=== PATIENT | female | born 1995 | race American Indian/Alaskan Native ===

== ENCOUNTER 2020-06-13 06:45 | Inpatient (IN) | payer OTHER ==
[2020-06-13] MEDS ORDERED: miSOPROStol 200 MCG TAB PR PRN (07:23)
[2020-06-13] MEDS ORDERED: OXYTOCIN 10 UNIT/1 ML INJ IM PRN (07:23)
[2020-06-13] MEDS ORDERED: LIDOCAINE (2%) 20 MG/1 ML VIAL 20 ML MDV INFILTRATI NR (07:23)
[2020-06-13] MEDS ORDERED: NALOXONE 0.4 MG/1 ML INJ IV PRN (07:23)
[2020-06-13] MEDS ORDERED: TERBUTALINE 1 MG/1 ML INJ SUB-Q PRN (07:23)
[2020-06-13] MEDS ORDERED: METHYLERGONOVINE MALEATE 0.2 MG/ML VIAL IM PRN (07:23)
[2020-06-13] MEDS ORDERED: ACETAMINOPHEN 325 MG TAB PO PRN (07:23)
[2020-06-13] MEDS ORDERED: ePHEDrine SULFATE 50 MG/1 ML INJ IV PRN ×2 (07:23→08:56)
[2020-06-13] MEDS ORDERED: AMPICILLIN/NS 2 GM/100 ML 2 GM/100 ML BAG IV NR (07:23)
[2020-06-13] MEDS ORDERED: CARBOPROST TROMETHAMINE 250 MCG/1 ML INJ IM PRN (07:23)
[2020-06-13] MEDS ORDERED: LACTATED RINGERS 1,000 ML IV SCH (07:30)
[2020-06-13 07:39] LABS: Hematocrit 34.9 % (30.3-42.9); Mean Corpuscular HGB Conc 34 % (30-34); Mean Corpuscular Volume 87 fl (79-97); Platelet Count 303 K/mm3 (140-440); Red Blood Count 4.02 M/mm3 (3.65-5.03); Red Cell Distribution Width 14.3 % (13.2-15.2)
[2020-06-13] MEDS ORDERED: ONDANSETRON 4 MG/2 ML INJ IV PRN ×2 (08:00→12:42)
[2020-06-13] MEDS ORDERED: OXYTOCIN DRIP 30 UNITS/500 ML BAG IV SCH ×2 (08:00)
[2020-06-13] MEDS ORDERED: fentaNYL 100 MCG/2 ML INJ IV PRN (08:00)
[2020-06-13] MEDS ORDERED: BUTORPHANOL 2 MG/1 ML INJ IV PRN ×2 (08:00)
--- NOTE | 2020-06-13 08:06 | History and Physical Report ---
History of Present Illness Date of examination: 06/13/20 Chief complaint: my water broke History of present illness: Pt is a 25 year old PHYLLIS 06/23/20 at 38w4d who presents with rupture of membranes at 0600 am, clear and painful contractions since this morning as well. She denies vaginal bleeding. She has had very limited care x 2 visits at [facility] since 25 wks (03/16/20 and 04/05/20), no visits in 2020 complicated by scoliosis with chiropractic referral and limited care. Her GBS status is unknown. Past History Past Medical History: other (Scoliosis ) PAYROLL ACCOUNTING CLERK History: other (HPV ) Family/Genetic History: cancer Social history: no significant social history - Obstetrical History Expected Date of Delivery: 06/23/20 Actual Gestation: 38 Week(s) 4 Day(s) : 2 Para: 1 Hx # Term Pregnancies: 1 Number of Pregnancies: 0 Spontaneous Abortions: 0 Induced : 0 Number of Living Children: 1 Medications and Allergies Allergies Allergy/AdvReac Type Severity Reaction Status Date / Time No Known Allergies Allergy Unverified 06/13/20 07:37 Active Meds: Active Medications Acetaminophen (Acetaminophen 325 Mg Tab) 650 mg PO Q4H PRN PRN Reason: Pain, Mild (1-3) Butorphanol Tartrate (Butorphanol 2 Mg/1 Ml Inj) 1 mg IV Q2H PRN PRN Reason: Pain, Moderate(4-6) LABOR PAIN Butorphanol Tartrate (Butorphanol 2 Mg/1 Ml Inj) 2 mg IV Q2H PRN PRN Reason: Pain , Severe (7-10) Carboprost Tromethamine (Carboprost Tromethamine 250 Mcg/1 Ml Inj) 250 mcg IM ONCE PRN PRN Reason: Uterine Bleeding Stop: 06/14/20 07:22 Ephedrine Sulfate (Ephedrine Sulfate 50 Mg/1 Ml Inj) 10 mg IV Q2M PRN PRN Reason: Hypotension Fentanyl (Fentanyl 100 Mcg/2 Ml Inj) 100 mcg IV Q2H PRN PRN Reason: Pain,Severe (7-10) LABOR PAIN Oxytocin/Sodium Chloride (Pitocin/Ns 30 Unit/500ml) 30 units in 500 mls @ 2 mls/hr IV TITR LUZ MARINA; Protocol Lactated Ringer's (Lactated Ringers) 1,000 mls @ 125 mls/hr IV DIRECT LUZ MARINA Last Admin: 06/13/20 07:59 Dose: 125 mls/hr Documented by: Oxytocin/Sodium Chloride (Pitocin/Ns 30 Unit/500ml) 30 units in 500 mls @ 40 mls/hr IV TITR LUZ MARINA; Protocol Ampicillin Sodium (Ampicillin/Ns 1 Gm/50 Ml) 1 gm in 50 mls @ 100 mls/hr IV Q4H LUZ MARINA; Protocol Lidocaine (Lidocaine (2%) 20 Mg/1 Ml Vial 20 Ml Mdv) 20 ml INFILTRATI ONCE NR Stop: 06/13/20 20:00 Methylergonovine Maleate (Methylergonovine Maleate 0.2 Mg/Ml Vial) 0.2 mg IM ONCE PRN PRN Reason: Uterine Bleeding Stop: 06/13/20 20:00 Mineral Oil (Mineral Oil 30 Ml Oral Liqd) 30 ml PO QHS PRN PRN Reason: Constipation Misoprostol (Misoprostol 200 Mcg Tab) 800 mcg NM ONCE PRN PRN Reason: Uterine Bleeding Stop: 06/13/20 23:00 Naloxone HCl (Naloxone 0.4 Mg/1 Ml Inj) 0.1 mg IV Q2MIN PRN PRN Reason: Res Rate </= 8 or 02 SAT < 92% Ondansetron HCl (Ondansetron 4 Mg/2 Ml Inj) 4 mg IV Q8H PRN PRN Reason: Nausea And Vomiting Oxytocin (Oxytocin 10 Unit/1 Ml Inj) 10 unit IM ONCE PRN PRN Reason: Uterine Bleeding Stop: 06/13/20 23:00 Terbutaline Sulfate (Terbutaline 1 Mg/1 Ml Inj) 0.25 mg SUB-Q ONCE PRN PRN Reason: Hyperstimulation/Hypertonicity Review of Systems All systems: negative - Vital Signs Vital signs: Vital Signs Pulse BP 84 126/80 06/13/20 07:16 06/13/20 07:16 Temp Pulse Resp BP Pulse Ox 84 126/80 06/13/20 07:16 06/13/20 07:16 - Physical Exam Breasts: Positive: deferred Abdomen: Positive: soft (gravid ) Genitourinary (Female): Positive: normal external genitalia Uterus: Positive: enlarged (gravid ) Extremities: Positive: normal - Obstetrical FHR: auscultation normal Uterine Contraction Monitor Mode: External Cervical Dilatation: 3 Cervical Effacement Percentage: 80 station: -2 Uterine Contraction Pattern: Regular Uterine Tone Measurement Phase: Resting Uterine Contraction Intensity: Moderate Results Result Diagrams: 06/13/20 07:25 All other labs normal. Assessment and Plan A: IUP at 38w4d SROM GBS unknown Scoliosis Limited Care x 2 visits P: Admit to labor and delivery Ampicillin for GBS prophylaxis Routine intrapartum care Closely monitor maternal and status
[2020-06-13] MEDS ORDERED: NALOXONE 2 MG/2 ML INJ IV PRN (08:56)
--- NOTE | 2020-06-13 08:57 | Anesthesia Consultation ---
Anesthesia Consult and Med Hx Date of service: 06/13/20 - Airway Anesthetic Teeth Evaluation: Good ROM Head & Neck: Adequate Mental/Hyoid Distance: Adequate Mallampati Class: Class II Intubation Access Assessment: Probably Good - Pulmonary Exam CTA: Yes - Cardiac Exam Cardiac Exam: RRR - Pre-Operative Health Status ASA Pre-Surgery Classification: ASA2 Proposed Anesthetic Plan: Epidural (scoliosis) - Pulmonary Hx Asthma: No COPD: No Hx Pneumonia: No - Cardiovascular System Hx Hypertension: No - Central Nervous System Hx Seizures: No Hx Psychiatric Problems: No - Endocrine Hx Renal Disease: No Hx End Stage Renal Disease: No Hx Hypothyroidism: No Hx Hyperthyroidism: No - Hematic Hx Anemia: No Hx Sickle Cell Disease: No - Other Systems Hx Alcohol Use: No
[2020-06-13] MEDS ORDERED: fentaNYL-BUPIV 2 MCG/ML-0.125% 200 MCG/100 ML BAG EPIDURAL SCH (09:00)
--- NOTE | 2020-06-13 09:08 | Progress Note ---
Labor Epidural - Labor Epidural Start Time: 08:55 Stop Time: 09:03 Performed by:: SHALINI VANCE Procedure: Patient is requesting epidural for labor pain. H&P, and labs reviewed. Procedure explained, questions answered, consent obtained. Patient in sitting position with blood pressure cuff and pulse ox on and working. Timeout performed immediately before start of procedure. Sterile chlorahexadine 0.5% prep/drape. 3 mL 1% lidocaine skin wheal at L[3]-L[4]. 18-gauge Tuohy epidural needle advanced to [id number] with saline at 5 cm. Epidural dexmedetomidine [30] mcg administered. Epidural catheter advanced to 10 cm, negative aspiration for blood and csf, negative test dose 3 ml 1.5% lidocaine with epinephrine. Sterile steri-strips and tegaderm applied, followed by tape reinforcement. Patient tolerated procedure well. Luba AWAD
--- NOTE | 2020-06-13 10:40 | Procedure Note ---
OB Delivery Note - Delivery Date of Delivery: 06/13/20 Surgeon: JUSTUS SALDIVAR Estimated blood loss: 300cc - Vaginal Delivery presentation: vertex Delivery position: OA Intrapartum events: PROM->1hr before delivery, decreased FHT variability, mult.variable deceleratio, uterine atony (s/p Methergine 0.2 mg IM ) Delivery augmentation: pitocin Delivery monitor: external FHT, external uterine Route of delivery: Delivery placenta: spontaneous Episiotomy: none Delivery laceration: other (Vaginal abrasions hemostatic without repair ) Anesthesia: epidural - Infant A at 1 minute: 8 at 5 minutes: 9 Infant Gender: Female (2790g (6lb 2.4 oz) @ 1026 am)
[2020-06-13] MEDS ORDERED: AMPICILLIN/NS 1 GM/50 ML 1 GM/50 ML BAG IV SCH (11:24)
[2020-06-13] MEDS ORDERED: diphenhydrAMINE 25 MG CAP PO PRN (12:42)
[2020-06-13] MEDS ORDERED: BENZOCAINE/MENTHOL 20/0.5% TOP SPRAY 56 GM TP PRN (12:42)
[2020-06-13] MEDS ORDERED: WITCH HAZEL/ GLYCERIN PAD TP PRN (12:42)
[2020-06-13] MEDS ORDERED: PROMETHAZINE 25 MG TAB PO PRN (12:42)
[2020-06-13] MEDS ORDERED: LANOLIN/ZINC/DIMETHICONE (LANSINOH) 7 GM TP PRN ×2 (12:42)
[2020-06-13] MEDS ORDERED: HYDROcodone/ACETAMINOPHEN 5-325 MG TAB PO PRN (12:42)
[2020-06-13] MEDS ORDERED: PROMETHAZINE 25 MG RECT SUPP PR PRN (12:42)
[2020-06-13] MEDS ORDERED: MAGNESIUM HYDROXIDE (MOM) ORAL LIQD UDC PO PRN (12:42)
[2020-06-13] MEDS: IBUPROFEN 600 MG TAB PO SCH ×2 (15:04→21:12)
--- NOTE | 2020-06-13 17:20 | Post Anesthesia Evaluation ---
- Post Anesthesia Evaluation Patient Participated: Yes Airway Patent: Yes Stable Respiratory Function: Yes Nausea/Vomiting: No Temp > 96.8F: Yes Pain Manageable: Yes Adequeate Hydration: Yes Anesthesia Complications: No Block Receding Appropriately: Yes
[2020-06-13] MEDS: FERROUS SULFATE 325 MG TAB PO SCH (21:11)
[2020-06-13] MEDS ORDERED: MINERAL OIL 30 ML ORAL LIQD PO PRN (22:00)
[2020-06-14 00:42] LABS: Hematocrit 31.7 % (30.3-42.9); Hemoglobin 10.7 gm/dl (10.1-14.3)
[2020-06-14] MEDS: IBUPROFEN 600 MG TAB PO SCH ×2 (04:13→14:44)
[2020-06-14] MEDS ORDERED: MEASLES, MUMPS & RUBELLA 12,500 UNIT/0.5 ML VACCINE SUB-Q ONE (06:00)
[2020-06-14] MEDS ORDERED: DIPHtheria,PERTUSSIS(ACELL),TETANUS VACCINE/PF 0.5 ML VIAL IM ONE (06:00)
--- NOTE | 2020-06-14 08:18 | Discharge Summary ---
Providers - Providers Date of Admission: 06/13/20 08:10 Date of discharge: 06/15/20 Attending physician: JUSTUS SALDIVAR 06/13/20 12:42 Consult to Brickmason Contractor [CONS] Routine Reason For Exam: assistance with , AUBREY 06/14/20 08:16 Consult to Case Management [CONS] Routine Services Needed at Discharge: Plating Equipment Tender Additional Physician Instructions: Limited care Primary care physician: JUSTUS SALDIVAR Hospitalization Reason for admission: active labor, rupture of membranes, IUP at term Delivery: Laceration: other (periurethral abrasions) Other procedures: none complications: none Discharge diagnosis: IUP at term delivered [place] baby: female Condition at discharge: Good Disposition: DC-01 TO HOME OR SELFCARE Plan - Discharge Medications Prescriptions: Ferrous Sulfate [Feosol 325 MG tab] 325 mg PO QDAY #30 tablet Ibuprofen [Motrin] 600 mg PO Q6H PRN #60 tablet PRN Reason: Pain - Provider Discharge Summary Activity: routine, no sex for 6 weeks, no heavy lifting 4 weeks, no strenuous exercise Diet: routine Instructions: routine Additional instructions: [] Smoking cessation referral if applicable(refer to patient education folder for contact #) [] Refer to [facility] Booklet Call your doctor immediately for: * Fever > 100.5 * Heavy vaginal bleeding ( >1 pad per hour) * Severe persistent headache * Shortness of breath * Reddened, hot, painful area to leg or breast * Drainage or odor from incision. * Keep incision clean and dry at all times and follow doctor's instructions regarding bathing/showering - Follow up plan Follow up: JUSTUS SALDIVAR MD [Primary Care Provider] - 14 Days (Please call office to schedule appointment in 2-4 weeks.)
--- NOTE | 2020-06-14 08:20 | Progress Note ---
Assessment and Plan A: PPD1 s/p Mild anemia due to blood loss Limited care P: Case management consult Discharge to home on PPD2 with Fe supplementation Subjective - Subjective Date of service: 06/14/20 Principal diagnosis: s/p Interval history: PPD1 s/p Patient reports: appetite normal, voiding normally, pain well controlled, ambulating normally : doing well, bottle feeding (attempting to nurse) Objective - Vital Signs Latest vital signs: Vital Signs Temp Pulse Resp BP BP Pulse Ox 06/14/20 04:13 18 06/14/20 01:14 98.6 F 70 16 105/77 06/13/20 22:12 18 06/13/20 21:12 18 06/13/20 20:36 98.0 F 76 18 111/73 100 06/13/20 16:03 97.1 F L 76 18 113/67 100 06/13/20 12:35 98 F 64 18 115/78 06/13/20 11:32 61 142/90 06/13/20 11:29 40 L 74 L 06/13/20 11:18 71 L 06/13/20 11:17 61 133/88 06/13/20 11:02 64 127/69 73 L 06/13/20 10:50 97.9 F 06/13/20 10:45 80 89 06/13/20 10:44 75 L 06/13/20 10:42 68 122/72 06/13/20 10:39 72 111/66 100 06/13/20 10:34 70 100 06/13/20 10:33 71 120/59 06/13/20 10:29 74 100 06/13/20 10:28 80 134/62 06/13/20 10:24 135 H 136/96 100 06/13/20 10:19 94 H 99 06/13/20 10:18 25 L 123/95 70 L 06/13/20 10:14 100 H 100 06/13/20 10:13 116 H 128/105 06/13/20 10:08 66 119/77 100 06/13/20 10:03 67 119/76 100 06/13/20 09:58 65 143/79 100 06/13/20 09:54 60 114/73 06/13/20 09:53 60 100 06/13/20 09:48 75 100/59 99 06/13/20 09:43 61 116/71 06/13/20 09:42 76 100 06/13/20 09:37 68 119/68 98 06/13/20 09:32 69 117/68 99 06/13/20 09:30 70 112/62 06/13/20 09:27 76 98 06/13/20 09:23 67 110/66 06/13/20 09:22 74 99 06/13/20 09:18 69 114/69 06/13/20 09:17 71 99 06/13/20 09:13 75 134/87 06/13/20 09:12 71 100 06/13/20 09:08 86 129/74 06/13/20 09:07 77 100 06/13/20 09:02 91 H 134/87 100 06/13/20 08:58 80 129/86 06/13/20 08:57 82 99 06/13/20 08:53 108 H 147/85 91 06/13/20 08:52 84 97 06/13/20 08:47 70 111/69 98 06/13/20 08:44 68 121/81 06/13/20 08:42 101 H 100 06/13/20 08:37 77 120/74 99 06/13/20 08:34 76 128/80 06/13/20 08:32 89 98 06/13/20 08:27 72 127/81 99 06/13/20 08:22 80 100 Intake and Output 06/13/20 06/14/20 06/14/20 23:59 07:59 15:59 Intake Total 620 400 Output Total 400 Balance 220 400 Intake: Oral 320 200 Intake, Free Water 300 200 Output: Urine 400 Void 400 Other: Total, Intake Amount 320 200 Total, Output Amount 400 # Voids Void 1 1 - Exam Abdomen: Present: soft. Absent: distention, tenderness, guarding Uterus: Present: firm, fundal height at umbilicus. Absent: bogginess, tenderness Extremities: Present: normal
[2020-06-14] MEDS: FERROUS SULFATE 325 MG TAB PO SCH (09:26)
[2020-06-14 13:58] VITALS: BP 107/79
== END 2020-06-14 15:00 | disposition home or self-care (01) | DRG 775 ==
LOC: TRG 06:45 → LD 06:46 → TRG 07:23 → LD 08:10 → OB 12:41
PROVIDERS: ADMIT Obstetrics & Gynecology; ATTEND Obstetrics & Gynecology
PROC: 10E0XZZ Delivery of Products of Conception, External Approach (ICD-10-PCS; principal; 2020-06-13)
PROC: 3E0134Z Introduction of Serum, Toxoid and Vaccine into Subcutaneous Tissue, Percutaneous Approach (ICD-10-PCS; 2020-06-13)
PROC: 3E0234Z Introduction of Serum, Toxoid and Vaccine into Muscle, Percutaneous Approach (ICD-10-PCS; 2020-06-13)
PROC: 3E0R3BZ Introduction of Anesthetic Agent into Spinal Canal, Percutaneous Approach (ICD-10-PCS; 2020-06-13)
PROC: 00HU33Z Insertion of Infusion Device into Spinal Canal, Percutaneous Approach (ICD-10-PCS; 2020-06-13)
DX: O76 Abnormality in fetal heart rate and rhythm complicating labor and delivery (principal); D50.0 Iron deficiency anemia secondary to blood loss (chronic); O99.02 Anemia complicating childbirth; O42.02 Full-term premature rupture of membranes, onset of labor within 24 hours of rupture; O62.2 Other uterine inertia; Z20.822 Contact with and (suspected) exposure to COVID-19; M41.9 Scoliosis, unspecified; O71.82 Other specified trauma to perineum and vulva; Z3A.38 38 weeks gestation of pregnancy; Z37.0 Single live birth; Z80.9 Family history of malignant neoplasm, unspecified
CPT/HCPCS: 36415; 85014; 85018; 85027; 86592; 86850; 86900; 86901; G0378; J0290; J0595; J7120; U0003

== ENCOUNTER 2020-10-11 19:30 | Emergency (ER) | payer OTHER ==
[2020-10-11] MEDS ORDERED: SODIUM CHLORIDE 0.9% 500 ML 500 ML IV ONE (20:17)
[2020-10-11] MEDS ORDERED: SODIUM CHLORIDE 0.9% 1000 ML IV SOLN IV ONE (20:21)
[2020-10-11] MEDS ORDERED: ACETAMINOPHEN 325 MG TAB PO ONE (20:22)
--- NOTE | 2020-10-11 20:23 | Emergency Department Report ---
Blank Doc - Documentation Documentation: 25-year-old female that presents with flank pain, urinary symptoms and fever and chills. 1- This is a initial triage assessment/medical screening only. Full assessment and work-up will be completed once the patient is in proper hospital gown, ED bed and in a private room setting. This initial assessment/diagnostic orders/clinical plan/ treatment(s) is/are subject to change based on pt's health status, clinical progression and re-assessment by fellow clinical providers in the ED. Further treatment and workup at subsequent clinical providers discretion. Patient/guardians urged not to elope from ED as their condition may be serious if not clinically assessed and managed. 2-sepsis work-up initiated
[2020-10-11 20:44] LABS: Basophils % (Auto) 0.3 % (0.0-1.8); Hematocrit 38.7 % (30.3-42.9); Hemoglobin 13.5 gm/dl (10.1-14.3); Lymphocytes # (Auto) 1.9 K/mm3 (1.2-5.4); Lymphocytes % (Auto) 14.3 % (13.4-35.0); Mean Corpuscular HGB Conc 35 % (30-34); Mean Corpuscular Volume 87 fl (79-97); Monocytes # (Auto) 1.6 K/mm3 (0.0-0.8); Monocytes % (Auto) 12.5 % (0.0-7.3); Platelet Count 247 K/mm3 (140-440); Red Blood Count 4.45 M/mm3 (3.65-5.03); Red Cell Distribution Width 13.9 % (13.2-15.2)
[2020-10-11 20:53] LABS: INR 0.95 (0.87-1.13)
[2020-10-11 21:02] LABS: Alanine Aminotransferase 19 units/L (7-56); Albumin 4.1 g/dL (3.9-5); BUN/Creatinine Ratio 10; Blood Urea Nitrogen 6 mg/dL (7-17); Calcium 8.9 mg/dL (8.4-10.2); Hemolysis Index 5
--- NOTE | 2020-10-11 21:11 | XRay Report ---
CHEST 2 VIEWS, 10/11/2020 7:48 PM INDICATION: Sepsis COMPARISON: None FINDINGS: Support devices: None. Heart: The cardiac silhouette is normal in size. Lungs/pleura: The lungs are clear of focal airspace disease or significant pleural effusion. Additional findings: No significant acute abnormality. IMPRESSION: 1. No evidence of acute cardiopulmonary process. Signer Name: Melia De La Cruz MD Signed: 10/11/2020 9:07 PM Workstation Name: [id number]
[2020-10-11 21:38] LABS: Bacteria,Urine 4+ /HPF (Negative); Bilirubin,Urine NEG (Negative); Blood,Urine MOD (Negative); Color,Urine Yellow (Yellow); Mucus,Urine 3+ /HPF; Urobilinogen,Urine < 2.0 mg/dL (<2.0)
[2020-10-11 21:39] LABS: WBC,Urine > 182.0 /HPF (0.0-6.0)
[2020-10-11] MEDS ORDERED: MEROPENEM/NS 1 GRAM/100 ML 1 GRAM/100 ML BAG IV ONE (22:22)
[2020-10-11] MEDS ORDERED: ONDANSETRON 4 MG/2 ML INJ IV ONE (22:24)
--- NOTE | 2020-10-11 22:27 | Emergency Department Report ---
ED General Adult HPI - General Chief complaint: Fever Stated complaint: FREQUENT URINATION/NAUSEA/EMESIS Time Seen by Provider: 10/11/20 22:10 Source: patient Mode of arrival: Ambulatory Limitations: No Limitations - History of Present Illness Initial comments: 25-year-old female patient with history of prior kidney stone presents to the emergency department with complaints of fever, right lower back pain, nausea, vomiting, and frequent urination for 5 days. No preceding fall, trauma, or injury. Patient has not taken any medications since the onset of her symptoms. Patient has been diagnosed with a kidney stone on 1 prior occasion. She did not require lithotripsy at that time. Last menstrual cycle was early September. Patient is on Depo-Provera. She is not concerned for STD exposure. Symptoms are reminiscent of prior kidney stone, although she admits she did not experience frequent urination at that time. Denies chest pain, shortness of breath, diarrhea, constipation, urinary retention, hematuria. Denies all other complaints at this time. Severity scale (0 -10): 0 - Related Data Home Medications Medication Instructions Recorded Confirmed Last Taken Multivitamin Tablet 1 tab PO DAILY 06/13/20 06/13/20 06/12/20 15:00 1 Previous Rx's Medication Instructions Recorded Last Taken Type Ferrous Sulfate [Feosol 325 MG tab] 325 mg PO QDAY #30 tablet 06/14/20 Unknown Rx Ibuprofen [Motrin] 600 mg PO Q6H PRN #60 tablet 06/14/20 Unknown Rx Ciprofloxacin HCl [Ciprofloxacin 500 mg PO BID 7 Days tablet 10/12/20 Unknown Rx TAB] Metoclopramide [Reglan] 10 mg PO TID PRN #20 tab 10/12/20 Unknown Rx Phenazopyridine HCl [Azo Urinary 2 tab PO TID 2 Days tablet 10/12/20 Unknown Rx Pain Relief] Allergies Allergy/AdvReac Type Severity Reaction Status Date / Time No Known Allergies Allergy Unverified 06/13/20 07:37 ED Review of Systems ROS: Stated complaint: FREQUENT URINATION/NAUSEA/EMESIS Other details as noted in HPI Other: GENERAL: Positive for fever and decreased appetite. ENT: Negative for ear pain, difficulty hearing, sore throat, nasal congestion, epistaxis. CARDIOVASCULAR: Negative for chest pain, palpitations, lower extremity swelling. PULMONARY: Negative for cough, dyspnea, wheezing, orthopnea, cyanosis. GASTROINTESTINAL: Positive for nausea and vomiting. GENITOURINARY: Positive for urinary frequency. MUSCULOSKELETAL: Positive for back pain. NEUROLOGICAL: Negative for headache, seizure, syncope, paresthesias, weakness. INTEGUMENTARY: Negative for erythema, rash, diaphoresis, laceration, ecchymosis. HEMATOLOGICAL: Negative for hemoptysis, hematemesis, hematochezia, hematuria. PSYCHIATRIC: Negative for hallucinations, suicidal ideation, homicidal ideation, anxiety, depression. ED Past Medical Hx - Past Medical History Previous Medical History?: No Hx Hypertension: No Hx Congestive Heart Failure: No Hx Diabetes: No Hx Deep Vein Thrombosis: No Hx Renal Disease: No Hx Sickle Cell Disease: No Hx Seizures: No Hx Asthma: No Hx COPD: No Hx HIV: No - Surgical History Past Surgical History?: No - Social History Smoking Status: Never Smoker - Medications Home Medications: Home Medications Medication Instructions Recorded Confirmed Last Taken Type Multivitamin Tablet 1 tab PO DAILY 06/13/20 06/13/20 06/12/20 15:00 History 1 Ferrous Sulfate [Feosol 325 MG tab] 325 mg PO QDAY #30 tablet 06/14/20 Unknown Rx Ibuprofen [Motrin] 600 mg PO Q6H PRN #60 tablet 06/14/20 Unknown Rx Ciprofloxacin HCl [Ciprofloxacin 500 mg PO BID 7 Days tablet 10/12/20 Unknown Rx TAB] Metoclopramide [Reglan] 10 mg PO TID PRN #20 tab 10/12/20 Unknown Rx Phenazopyridine HCl [Azo Urinary 2 tab PO TID 2 Days tablet 10/12/20 Unknown Rx Pain Relief] ED Physical Exam - General Limitations: No Limitations - Other Other exam information: General: Awake and alert. No acute distress. Appears fatigued. Head: Atraumatic, normocephalic. Eyes: EOMI. Pupils are equal and round. Normal sclera and conjunctiva. ENT: Oral mucosa is dry. Normal pharyngeal exam. Neck: Supple. No lymphadenopathy. Pulmonary: No respiratory distress. Clear to auscultation bilaterally. Cardiac: Tachycardic. Pulses are palpable and equal bilaterally. No lower extremity cyanosis or edema. Skin: Warm and dry. No rashes. Abdomen: Soft, non-tender, non-protuberant. No guarding, rigidity, or rebound. Bowel sounds are normal. No organomegaly or masses noted. McBurney's point is nontender. Christianson sign is negative. Back: Normal alignment. Right CVA tenderness. Extremities: Symmetrical. Full range of motion intact. Neurological: Alert and oriented, appropriately interactive, no focal deficits. Psych: Cooperative. Appropriate mood and affect. Speech is evenly metered. Thoughts are logically construed. ED Course Vital Signs 10/11/20 10/11/20 10/11/20 20:15 20:17 21:48 Temperature 102.6 F H 102.6 F H Pulse Rate 125 H 125 H Respiratory 16 16 16 Rate Blood Pressure 95/54 Blood Pressure 95/54 [Right] O2 Sat by Pulse 98 98 Oximetry 10/11/20 10/11/20 10/12/20 22:04 22:35 07:14 Temperature 101.9 F H Pulse Rate 112 H 94 H Respiratory 16 Rate Blood Pressure 129/84 Blood Pressure [Right] O2 Sat by Pulse 100 99 Oximetry ED Medical Decision Making - Lab Data Result diagrams: 10/11/20 20:21 10/11/20 20:21 - Radiology Data [facility] [address] [place] [address] Cat Scan Report Signed Patient: RAE GUERRERO MR#: [id number] : 1995 Acct:[id number] Age/Sex: 25 / F ADM Date: 10/11/20 Loc: ED Attending Dr: Ordering Physician: SONU VIZCARRA Date of Service: 10/11/20 Procedure(s): CT abdomen pelvis w con Accession Number(s): [id number] cc: SONU VIZCARRA CT abdomen pelvis w con INDICATION: RIGHT sided pyelonephritis +/- obstructing stone(s). COMPARISON: None TECHNIQUE: Abdominal and pelvic CT exam performed. All CT scans at this location are performed using CT dose reduction for ALARA by means of automated exposure control. FINDINGS: CT ABDOMEN and PELVIS: Lung Bases: No significant abnormality. Liver: No significant abnormality. Biliary: No significant abnormality. Spleen: No significant abnormality. Pancreas: No significant abnormality. Adrenals: No significant abnormality. Kidneys: There are areas of decreased cortical enhancement involving the superior and lower poles of the kidney. Associated mild urothelial enhancement. 1.5 cm right midpole hypoattenuating lesion is most likely a cyst. Lymphatics: No lymphadenopathy. Vasculature: No significant abnormality. Bowel: Possible mild thickening/mucosal edema seen within the transverse colon on image 74 series 2. Normal appendix. Pelvis: No significant abnormality. Osseous Structures: No aggressive osseous lesion. Additional Findings: None IMPRESSION: 1. Findings consistent right pyelonephritis. 2. Possible findings of colitis. Correlate clinically. Signer Name: Jonathan Shannon MD Signed: 10/12/2020 1:06 AM Workstation Name: [id number] Transcribed By: JOSE EDUARDO Dictated By: Jonathan Shannon MD Electronically Authenticated By: Jonathan Shannon MD Signed Date/Time: 10/12/20105 DD/ 1 TD/TT: - Medical Decision Making Differential diagnosis including but not limited to: pyelonephritis, nephrolithiasis, ectopic , ovarian cyst/torsion, appendicitis, pelvic inflammatory disease, acute kidney injury, dehydration 22:10: Sepsis protocol initiated by gift basket packer prior to provider evaluation did not include test; ordered serum beta hCG prior to CT abdomen/pelvis. 23:29: test is pending. Spoke with laboratory, patient's blood has not yet been redrawn. 00:01: test results available and negative. Spoke with radiology, will take patient to CT at this time. On reevaluation, patient is stable and symptoms have improved. No further vomiting in the emergency department. Patient was febrile and tachycardic on arrival; sepsis protocol initiated in triage. White blood cell count elevated at 13,000; lactic acid is normal. Labs show mild dehydration without acute kidney injury. History, physical exam findings, and urinalysis consistent with right pyelonephritis. CT of the abdomen/pelvis obtained to evaluate for possible concomitant obstructing stone given patient's history of right-sided nephrolithiasis. Patient was treated with IV Meropenem and Vancomycin per current UpToDate guidelines pending radiology results. No evidence of kidney stone seen on CT scan. Nancy was also identified on urinalysis; treated with one-time dose of Diflucan. test is negative. Renal function is within normal limits. Patient is tolerating oral intake without difficulty. Patient reports no decrease in urine output. No clinical indication for further diagnostic work-up or continued IV antibiotics on an emergent basis at this time. Tachycardia is resolved after IV fluids and antibiotics. She is an appropriate candidate for outpatient management. Patient will be discharged home with Ciprofloxacin per current UpToDate guidelines as well as appropriate symptomatic treatment and instructed to follow-up with her primary care provider this week for repeat evaluation. Patient expressed understanding and is agreeable to plan of care. Strict return precautions provided. Repeat exam is unremarkable and benign. History, exam, diagnostic testing, and current condition do not suggest worrisome pathology to warrant further testing, continued ED treatment, admission, or surgical evaluation at this point. Given the low probability of a significant medical illness, it would be more likely to result in harm than benefit to perform further testing at this stage. Discussed findings, presumptive diagnosis, need for follow-up and specific signs/symptoms that should prompt immediate return to the emergency department. Instructions were explained in detail to the patient in addition to giving written discharge information. Patient expressed understanding and was given the opportunity to ask questions, all of which were satisfactorily answered prior to discharge home. Critical care attestation.: If time is entered above; I have spent that time in minutes in the direct care of this critically ill patient, excluding procedure time. ED Disposition Clinical Impression: Pyelonephritis Disposition: - TO HOME OR SELFCARE Is pt being admited?: No Does the pt Need Aspirin: No Condition: Stable Instructions: Pyelonephritis, Adult, [id number] Additional Instructions: Take Tylenol every 4 hours and Motrin every 8 hours as needed for pain/fever. Take Ciprofloxacin with food as directed. Increase your dietary intake of probiotic rich foods while taking this medication. Take Zofran as directed for nausea. Take AZO as directed for urinary discomfort. Rest. Drink plenty of fluids. Gradually advance diet slowly as tolerated. Follow-up with primary care provider this week. Call tomorrow to schedule an appointment. Return to the emergency department immediately for new or worsening symptoms. Specifically, return to the emergency department immediately for worsening pain, increased vomiting, difficulty using the bathroom, dehydration, mental status changes, rash, or any other concerns. Prescriptions: Phenazopyridine HCl [Azo Urinary Pain Relief] 2 tab PO TID 2 Days tablet Ciprofloxacin HCl [Ciprofloxacin TAB] 500 mg PO BID 7 Days tablet Metoclopramide [Reglan] 10 mg PO TID PRN #20 tab PRN Reason: Nausea Referrals: [facility] [Provider Group] - 3-5 Days Forms: Work/School Release Form(ED) Time of Disposition: :27
[2020-10-11 22:36] VITALS: BP 129/84
[2020-10-12] MEDS ORDERED: KETOROLAC 30 MG/1 ML INJ IV ONE (00:04)
[2020-10-12] MEDS ORDERED: VANCOMYCIN/NS 1 GM/250 ML 1 GM/250 ML BAG IV ONE (00:04)
--- NOTE | 2020-10-12 01:11 | Cat Scan Report ---
CT abdomen pelvis w con INDICATION: RIGHT sided pyelonephritis +/- obstructing stone(s). COMPARISON: None TECHNIQUE: Abdominal and pelvic CT exam performed. All CT scans at this location are performed using CT dose reduction for ALARA by means of automated exposure control. FINDINGS: CT ABDOMEN and PELVIS: Lung Bases: No significant abnormality. Liver: No significant abnormality. Biliary: No significant abnormality. Spleen: No significant abnormality. Pancreas: No significant abnormality. Adrenals: No significant abnormality. Kidneys: There are areas of decreased cortical enhancement involving the superior and lower poles of the kidney. Associated mild urothelial enhancement. 1.5 cm right midpole hypoattenuating lesion is mo st likely a cyst. Lymphatics: No lymphadenopathy. Vasculature: No significant abnormality. Bowel: Possible mild thickening/mucosal edema seen within the transverse colon on image 74 series 2. Normal appendix. Pelvis: No significant abnormality. Osseous Structures: No aggressive osseous lesion. Additional Findings: None IMPRESSION: 1. Findings consistent right pyelonephritis. 2. Possible findings of colitis. Correlate clinically. Signer Name: Jonathan Shannon MD Signed: 10/12/2020 1:06 AM Workstation Name: [id number]
[2020-10-12] MEDS ORDERED: FLUCONAZOLE 100 MG TAB PO ONE (01:19)
[2020-10-12] MEDS ORDERED: FLUCONAZOLE 200 MG TAB PO ONE (01:25)
--- NOTE | 2020-10-13 10:31 | Electrocardiograph Report ---
[facility] Test Date: 2020-10-11 Test Time: 23:23:52 Pat Name: RAE GUERRERO Department: Room: Gender: F Regional Sales Manager: GLADYS : 1995 Requested By: ALLYSON SIU III Order Number: [id number] Reading MD: Linn Woods Measurements Intervals [place] Rate: 105 P: 60 [place]: 130 QRS: 46 QRSD: 82 T: -80 QT: 372 QTc: 492 Interpretive Statements Sinus tachycardia Inferolateral ST depression, consider ischemia No previous ECG available for comparison Electronically Signed On 10-13-2020 10:30:40 EDT by Linn Woods
== END 2020-10-12 02:55 | disposition home or self-care (01) ==
LOC: ED 19:30
DX: N12 Tubulo-interstitial nephritis, not specified as acute or chronic (principal); Z79.1 Long term (current) use of non-steroidal anti-inflammatories (NSAID); Z79.2 Long term (current) use of antibiotics; Z79.899 Other long term (current) drug therapy
CPT/HCPCS: 36415; 71046; 74177; 80053; 81001; 82140; 82805; 84703; 85025; 85610; 87040; 87076; 87086; 87186; 93005; 96361; 96365; 96367; 96375; 99285; J1885; J2185; J2405; J3370; Q9967